=== PATIENT | male | born 1995 | race Hispanic/Latino ===

== ENCOUNTER 2021-04-28 18:11 | Emergency (ER) | payer SELFPAY ==
[2021-04-28] MEDS ORDERED: Ibuprofen 200 MG TAB ONE (18:30)
== END 2021-04-28 19:37 | disposition home or self-care (01) ==
LOC: ERS 18:11
DX: S93.402A Sprain of unspecified ligament of left ankle, initial encounter (principal); H10.9 Unspecified conjunctivitis; J06.9 Acute upper respiratory infection, unspecified; X50.1XXA Overexertion from prolonged static or awkward postures, initial encounter; Z20.822 Contact with and (suspected) exposure to COVID-19

== ENCOUNTER 2021-09-06 00:30 | Emergency (ER) | payer SELFPAY ==
[2021-09-06] MEDS ORDERED: Dexamethasone 10 MG/ML VIAL ONE (00:57)
== END 2021-09-06 01:42 | disposition home or self-care (01) ==
LOC: ERS 00:30
DX: J02.9 Acute pharyngitis, unspecified (principal); I10 Essential (primary) hypertension
CPT/HCPCS: 96372; 99283; J1100

== ENCOUNTER 2022-01-05 09:27 | Emergency (ER) | payer SELFPAY ==
[2022-01-05] MEDS ORDERED: Lidocaine 1% PF 5 ML VIAL ONE (10:12)
[2022-01-05] MEDS ORDERED: Bupivacaine 0.25% 10 ML VIAL ONE (11:27)
[2022-01-05] MEDS ORDERED: Lidocaine 2% PF 5 ML VIAL ONE (11:27)
[2022-01-05] MEDS ORDERED: Bacitracin 1 PK ONE (12:08)
== END 2022-01-05 12:12 | disposition home or self-care (01) ==
LOC: ERS 09:27
DX: L60.0 Ingrowing nail (principal); E11.9 Type 2 diabetes mellitus without complications; I10 Essential (primary) hypertension; Z79.899 Other long term (current) drug therapy; Z79.84 Long term (current) use of oral hypoglycemic drugs
CPT/HCPCS: 11750; J2001; S0020

== ENCOUNTER 2023-05-18 10:02 | Emergency (ER) | payer SELFPAY ==
[2023-05-18 10:43] LABS: #Basophils 0.1 thou/uL (0.0-0.2); #Eosinphils 0.6 thou/uL (0.0-0.7); #Monocytes 0.7 thou/uL (0.11-0.59); #Neutrophils 9.1 thou/uL (1.40-6.50); %Basophils 0.5 % (0.0-1.0); %Lymphocytes 17.7 % (21.0-51.0); %Monocytes 5.4 % (0.0-10.0); %Neutrophils 70.9 % (42.0-75.0); Hematocrit 44.9 % (42.0-52.0); Hemoglobin 14.6 g/dL (14.0-18.0); Mean Corpuscular HGB CONC 32.5 g/dL (32.0-36.0); Mean Corpuscular Hemoglobin 27.4 pg (27.0-31.0); Mean Corpuscular Volume 84.2 fl (78.0-98.0); Mean Platelet Volume 10.5 fL (7.4-10.4); Platelet Count 314 10x3/uL (130-400); RBC Distribution Width 13.3 % (11.5-14.5); Red Blood Cell (RBC) Count 5.33 mill/uL (4.70-6.10); White Blood Cell (WBC) Count 12.9 10x3/uL (4.8-10.8)
[2023-05-18 12:20] LABS: ALT (SGPT) 58 U/L (8-55); AST (SGOT) 33 U/L (5-34); Albumin 4.5 g/dL (3.5-5.0); Alkaline Phosphatase 105 U/L (40-110); Anion Gap 16 mmol/L (10-20); BUN (Urea Nitrogen) 15 mg/dL (8.9-20.6); Bilirubin, Total 0.3 mg/dL (0.2-1.2); Calc. Creatinine Clearance 0 mL/min (70-130); Calcium 10.4 mg/dL (7.8-10.44); Carbon Dioxide 22 mmol/L (22-29); Chloride 103 mmol/L (98-107); Estimated GFR 121; Globulin 4.3 g/dL (2.4-3.5); Glucose 118 mg/dL (70-105); Potassium 4.3 mmol/L (3.5-5.1); Protein, Total 8.8 g/dL (6.0-8.3); Sodium 137 mmol/L (136-145)
== END 2023-05-18 13:17 | disposition home or self-care (01) ==
LOC: ERS 10:02
DX: K29.70 Gastritis, unspecified, without bleeding (principal); K62.5 Hemorrhage of anus and rectum; I10 Essential (primary) hypertension; E11.9 Type 2 diabetes mellitus without complications; Z79.84 Long term (current) use of oral hypoglycemic drugs; Z79.899 Other long term (current) drug therapy
CPT/HCPCS: 36415; 80053; 85025; 99284

== ENCOUNTER 2023-09-08 01:22 | Emergency (ER) | payer SELFPAY ==
[2023-09-08] MEDS ORDERED: Ipratropium/Albuterol 3 ML NEB ONE (02:10)
[2023-09-08] MEDS ORDERED: predniSONE 20 MG TAB ONE (02:10)
[2023-09-08 02:24] LABS: SARS-CoV-2 NAA Rapid Test Not Detected (NotDetected)
[2023-09-08 02:43] LABS: #Eosinphils 0.5 thou/uL (0.0-0.7); #Monocytes 0.4 thou/uL (0.11-0.59); #Neutrophils 3.5 thou/uL (1.40-6.50); %Basophils 0.5 % (0.0-1.0); %Eosinophils 5.9 % (0.0-10.0); %Lymphocytes 42.2 % (21.0-51.0); %Monocytes 5.6 % (0.0-10.0); %Neutrophils 45.5 % (42.0-75.0); Hematocrit 40.4 % (42.0-52.0); Hemoglobin 12.9 g/dL (14.0-18.0); Mean Corpuscular HGB CONC 31.9 g/dL (32.0-36.0); Mean Corpuscular Volume 84.7 fl (78.0-98.0); Platelet Count 265 10x3/uL (130-400); RBC Distribution Width 13.6 % (11.5-14.5); Red Blood Cell (RBC) Count 4.77 mill/uL (4.70-6.10); White Blood Cell (WBC) Count 7.8 10x3/uL (4.8-10.8)
[2023-09-08] MEDS ORDERED: Oseltamivir 75 MG CAP ONE (02:56)
[2023-09-08 03:08] LABS: Troponin I Less than 0.010 ng/mL (< 0.028)
[2023-09-08 03:11] LABS: ALT (SGPT) 93 U/L (8-55); AST (SGOT) 47 U/L (5-34); Alkaline Phosphatase 77 U/L (40-110); Anion Gap 16 mmol/L (10-20); BUN (Urea Nitrogen) 12 mg/dL (8.9-20.6); Bilirubin, Total 0.3 mg/dL (0.2-1.2); Calc. Creatinine Clearance 0 mL/min (70-130); Calcium 9.3 mg/dL (7.8-10.44); Carbon Dioxide 20 mmol/L (22-29); Chloride 105 mmol/L (98-107); Estimated GFR 127; Globulin 3.5 g/dL (2.4-3.5); Glucose 96 mg/dL (70-105); Magnesium 1.9 mg/dL (1.6-2.6); Protein, Total 7.5 g/dL (6.0-8.3); Sodium 137 mmol/L (136-145)
== END 2023-09-08 03:50 | disposition home or self-care (01) ==
LOC: ERS 01:22
DX: J10.1 Influenza due to other identified influenza virus with other respiratory manifestations (principal); I10 Essential (primary) hypertension
CPT/HCPCS: 36415; 71045; 80053; 83735; 83880; 84484; 85025; 93005; J7512; J7620

== ENCOUNTER 2024-08-26 20:37 | Emergency (ER) | payer SELFPAY ==
[2024-08-26] MEDS ORDERED: Acetaminophen 500 MG TAB ONE (20:49)
[2024-08-26] MEDS ORDERED: Ibuprofen 200 MG TAB ONE (20:49)
== END 2024-08-26 22:25 | disposition home or self-care (01) ==
LOC: ERS 20:37
DX: J11.1 Influenza due to unidentified influenza virus with other respiratory manifestations (principal); R04.0 Epistaxis; I10 Essential (primary) hypertension; E11.9 Type 2 diabetes mellitus without complications; Z79.84 Long term (current) use of oral hypoglycemic drugs
CPT/HCPCS: 87428; 99283